=== PATIENT | male | born 1950 | race Caucasian/White ===

== ENCOUNTER 2017-01-22 06:38 | Emergency (ER) | payer OTHER ==
[~2017-01-22] VITALS: Ht 177.8 cm; Wt 81.6 kg
[2017-01-22 06:50] VITALS: BP_SYST 140
[2017-01-22] MEDS ORDERED: LORA10TA7 PO (07:04)
[2017-01-22] MEDS ORDERED: LANS15CA5 PO (07:04)
[2017-01-22 07:16] LABS: BILIRUBIN,URINE NEGATIVE (NEGATIVE); BLOOD, URINE NEGATIVE (NEGATIVE); CLARITY/URINE CLEAR (CLEAR); COLOR,URINE YELLOW (YELLOW); GLUCOSE,URINE NEGATIVE (NEGATIVE); KETONES,URINE NEGATIVE (NEGATIVE); LEUKOCYTE ESTERASE ,URINE NEGATIVE (NEGATIVE); NITRITE, URINE NEGATIVE (NEGATIVE); PH,URINE 6.5 (5.0-8.0); PROTEIN URINE NEGATIVE (NEGATIVE); UROBILINOGEN,URINE 0.2 (0.2-1.0)
[2017-01-22 07:50] VITALS: BP_SYST 140
== END 2017-01-22 07:50 | disposition home or self-care (01) ==
LOC: SED 06:38
DX: R35.0 Frequency of micturition (principal)
CPT/HCPCS: 81003; 82962; 99283